=== PATIENT | female | born 1955 | race African-American/Black ===

== ENCOUNTER 2017-08-15 13:00 | Emergency (ER) | payer MEDICAID ==
[~2017-08-15] VITALS: Ht 188 cm; Wt 132.0 kg
[2017-08-15] MEDS ORDERED: TETRACAINE/BENZOCAINE/BUTAMBEN 20 GM SPRAY MM ONE (18:30)
[2017-08-15] MEDS ORDERED: DEXAMETHASONE 10 MG/ML VIAL IM ONE (18:30)
[2017-08-15] MEDS ORDERED: KETOROLAC 30MG/ML VIAL IM ONE (18:30)
[2017-08-15] MEDS ORDERED: CLINDAMYCIN 600 MG in DEXTROSE 5% WATER 50 ML IV ONE (18:30)
[2017-08-15] MEDS ORDERED: LIDOCAINE HCL 1% 20ML VIAL (Pyxis) INJ MC ONE (18:30)
[2017-08-15] MEDS ORDERED: TETRACAINE/BENZOCAINE/BUTAMBEN 20 GM SPRAY MM NR (19:00)
[2017-08-15 19:30] VITALS: BP 162/90
== END 2017-08-15 20:56 | disposition home or self-care (01) ==
LOC: ER 13:26
DX: J36 Peritonsillar abscess (principal); I10 Essential (primary) hypertension; Z87.891 Personal history of nicotine dependence
CPT/HCPCS: 42700; 96365; 96372; 99284; J1100; J1885; J3490; J7060